=== PATIENT | female | born 1990 | race Two or more races ===

== ENCOUNTER 2016-08-22 12:08 | Emergency (ER) | payer OTHER ==
[~2016-08-22] VITALS: Ht 160 cm; Wt 83.5 kg
[2016-08-22 12:08] VITALS: BP 124/88
[~2016-08-22 12:08] MED LIST: BIRTH CONTROL PILLS
--- NOTE | 2016-08-22 12:20 | NUR ---
abdulaziz cornejo at bedside for eval. utd to tetanus shot.
[2016-08-22] MEDS ORDERED: IBUPROFEN 400 MG TABLET PO ONE (13:00)
[2016-08-22] MEDS ORDERED: IBUPROFEN 400 MG TABLET ONE (13:04)
== END 2016-08-22 13:30 | disposition home or self-care (01) ==
LOC: ER 12:10
DX: S61.412A Laceration without foreign body of left hand, initial encounter (principal); W26.0XXA Contact with knife, initial encounter; Y93.89 Activity, other specified; Y92.89 Other specified places as the place of occurrence of the external cause; Y99.8 Other external cause status
CPT/HCPCS: 12001; 73130; 99284; A4606; A6402; A6403; Z7610

== ENCOUNTER 2018-06-05 09:25 | Emergency (ER) | payer OTHER ==
[~2018-06-05] VITALS: Ht 154.9 cm; Wt 87.1 kg
[2018-06-05 09:33] VITALS: BP 116/70
== END 2018-06-05 10:04 | disposition home or self-care (01) ==
LOC: ER 09:27
DX: O99.511 Diseases of the respiratory system complicating pregnancy, first trimester (principal); J06.9 Acute upper respiratory infection, unspecified; Z3A.13 13 weeks gestation of pregnancy

== ENCOUNTER 2018-12-18 10:54 | Emergency (ER) | payer OTHER ==
[~2018-12-18] VITALS: Ht 154.9 cm; Wt 84.4 kg
[2018-12-18 11:02] VITALS: BP 121/91
--- NOTE | 2018-12-18 11:03 | NUR ---
CHAPERONED DR DEAN TO EVALUATE PATIENT
== END 2018-12-18 11:31 | disposition home or self-care (01) ==
LOC: ER 10:54
DX: K64.5 Perianal venous thrombosis (principal)

== ENCOUNTER 2019-05-26 09:51 | Emergency (ER) | payer OTHER ==
[~2019-05-26] VITALS: Ht 154.9 cm; Wt 77.1 kg
[2019-05-26 09:56] VITALS: BP 130/87
== END 2019-05-26 10:27 | disposition home or self-care (01) ==
LOC: ER 09:57
DX: J11.1 Influenza due to unidentified influenza virus with other respiratory manifestations (principal)

== ENCOUNTER 2025-02-22 11:39 | Emergency (ER) | payer OTHER ==
[~2025-02-22] VITALS: Ht 152.4 cm; Wt 68.0 kg
[2025-02-22 12:02] LABS: APPEARANCE,URINE CLOUDY (CLEAR); BLOOD, URINE 3+ Ery/uL (NEGATIVE); LEUKOCYTE ESTERASE ,URINE 1+ (NEGATIVE); NITRITE, URINE NEGATIVE (NEGATIVE); UGLUCOSE NEGATIVE (NEGATIVE)
[2025-02-22 12:23] LABS: PREGNANCY TEST URINE QUAL NEGATIVE (NEGATIVE)
[2025-02-22] MEDS ORDERED: KETOROLAC TROMETHAMINE 15 MG/ML VIAL ONE (12:25)
[2025-02-22 12:26] LABS: ADD URINE CULTURE YES; SQUAMOUS EPITHELIAL CELL,UR Rare /HPF (None Seen)
[2025-02-22] MEDS: KETOROLAC TROMETHAMINE 15 MG/ML VIAL IM ONE (12:28)
[2025-02-22] MEDS ORDERED: CEPH-570 PO ×2 (12:31→21:36)
[2025-02-22 12:38] VITALS: BP 125/80; TEMP 98.5; O2SAT 99
== END 2025-02-22 12:39 | disposition home or self-care (01) ==
LOC: ER 11:39
DX: M54.50 Low back pain, unspecified (principal); N39.0 Urinary tract infection, site not specified; Z79.3 Long term (current) use of hormonal contraceptives
CPT/HCPCS: 99283; 96372; 87086; 84703; 81001; J1885

== ENCOUNTER 2025-05-24 17:59 | Emergency (ER) | payer OTHER ==
[~2025-05-24] VITALS: Ht 154.9 cm; Wt 77.1 kg
[~2025-05-24 17:59] MED LIST changes: +CEPH-570 PO
[2025-05-24 18:15] VITALS: BP 142/88; TEMP 98.7; O2SAT 100
[2025-05-24] MEDS ORDERED: CEPH-570 PO (18:29)
[2025-05-24 18:48] LABS: APPEARANCE,URINE CLOUDY (CLEAR); BLOOD, URINE 3+ Ery/uL (NEGATIVE); LEUKOCYTE ESTERASE ,URINE TRACE (NEGATIVE); NITRITE, URINE POSITIVE (NEGATIVE); UGLUCOSE NEGATIVE (NEGATIVE)
[2025-05-24 18:51] LABS: PREGNANCY TEST URINE QUAL NEGATIVE (NEGATIVE)
[2025-05-24 19:03] LABS: ADD URINE CULTURE YES
== END 2025-05-24 18:40 | disposition home or self-care (01) ==
LOC: ER 18:02
DX: N39.0 Urinary tract infection, site not specified (principal); Z79.3 Long term (current) use of hormonal contraceptives
CPT/HCPCS: 81001; 84703-TC; 87086-TC; 87186-TC